=== PATIENT | male | born 2005 | race Caucasian/White ===

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

== ENCOUNTER 2024-06-07 11:16 | Outpatient (RCR) | payer OTHER, MEDICAID | END 2024-06-08 | LOC: M PT 11:16 | PROVIDERS: ATTEND Nurse Practitioner Family | DX: I89.0 Lymphedema, not elsewhere classified (principal) ==

== ENCOUNTER 2024-06-19 14:09 | Outpatient (RCR) | payer OTHER, MEDICAID | END 2024-07-08 | LOC: M PT 14:09 | PROVIDERS: ATTEND Nurse Practitioner Family | DX: I89.0 Lymphedema, not elsewhere classified (principal); M79.89 Other specified soft tissue disorders ==

== ENCOUNTER 2024-07-24 09:16 | Outpatient (RCR) | payer OTHER, MEDICAID | END 2024-08-08 | LOC: M PT 09:16 | PROVIDERS: ATTEND Nurse Practitioner Family | DX: I89.0 Lymphedema, not elsewhere classified (principal) ==

== ENCOUNTER 2025-03-29 09:04 | Outpatient (RCR) | payer OTHER, MEDICAID | END 2025-04-08 | LOC: M PT 09:04 | PROVIDERS: ATTEND Nurse Practitioner Family | DX: R20.0 Anesthesia of skin (principal) ==

== ENCOUNTER 2025-04-26 10:38 | Outpatient (RCR) | payer OTHER, MEDICAID | END 2025-05-08 | LOC: M PT 10:38 | PROVIDERS: ATTEND Nurse Practitioner Family | DX: R20.0 Anesthesia of skin (principal) ==

== ENCOUNTER 2025-07-25 10:06 | Outpatient (RCR) | payer OTHER, MEDICAID | END 2025-08-08 | LOC: M PT 10:06 | PROVIDERS: ATTEND Nurse Practitioner Family | DX: I89.0 Lymphedema, not elsewhere classified (principal) ==